=== PATIENT | female | born 2000 | race Caucasian/White ===

== ENCOUNTER 2021-12-12 18:19 | Emergency (ER) | payer MEDICAID ==
[~2021-12-12] VITALS: Ht 154.9 cm; Wt 47.7 kg
[2021-12-12 18:42] VITALS: BP 113/70
[2021-12-12] MEDS ORDERED: penicillin V potassium 500mg tablet PO ONE (22:20)
[2021-12-12] MEDS ORDERED: PENI500T2 PO (22:23)
== END 2021-12-12 22:30 | disposition home or self-care (01) ==
LOC: ER 18:21
DX: J02.0 Streptococcal pharyngitis (principal); R51.9 Headache, unspecified; Z87.440 Personal history of urinary (tract) infections; Z79.2 Long term (current) use of antibiotics
CPT/HCPCS: 87880; 99283